=== PATIENT | female | born 1960 | race Caucasian/White ===

== ENCOUNTER 2020-05-02 05:14 | Inpatient (IN) | payer OTHER, MEDICAID ==
[~2020-05-02] VITALS: Ht 152.4 cm; Wt 89.4 kg
[~2020-05-02 05:14] MED LIST: HYDR2TAB58; METH-562; [UNRECOGNIZED DRUG - CODE]; [UNRECOGNIZED DRUG - OTHER]
[2020-05-02] MEDS: BUDESONIDE (INHALATION) 180 MCG IH IN SCH ×2 (06:35→19:14)
[2020-05-02 06:54] LABS: Basophils # (auto) 0 10 ^3/uL (0-0.2); Basophils % (auto) 0.4 % (0.0-2.0); Eosinophils # (auto) 0 10 ^3/uL (0-0.8); Hematocrit 39.5 % (36.0-46.0); Hemoglobin 13.3 g/dL (12.2-16.2); Lymphocytes # (auto) 0.6 10 ^3/uL (0.4-5.4); Lymphocytes % (auto) 13.5 % (10.0-50.0); Mean Corpuscular Hemoglobin 29.8 pg (28.0-32.0); Mean Corpuscular Hgb Conc. 33.8 g/dL (32.0-36.0); Mean Corpuscular Volume 88.3 fL (80.0-100.0); Monocytes # (auto) 0.5 10 ^3/uL (0-1.3); Monocytes % (auto) 11.7 % (0.0-12.0); Neutrophils # (auto) 3.3 10 ^3/uL (1.6-8.6); Neutrophils % (auto) 74.4 % (37.0-80.0); Nucleated Red Blood Cells % 0.2 %; Platelet Count (auto) 230 10^3/uL (140-450); Red Blood Cells 4.47 10^6/uL (4.0-5.20); Red Cell Distribution Width 13.8 % (11.8-14.3); White Blood Cell 4.4 10^3/uL (4.4-10.8)
[2020-05-02] MEDS ORDERED: ACETAMINOPHEN 500 MG TAB PO ONE (07:00)
[2020-05-02 07:01] LABS: INR 1.06 (0.9-1.15); Partial Thromboplastin Time 25.6 sec (23.0-31.2)
[2020-05-02 07:07] LABS: Calcium 7.9 mg/dL (8.5-10.1); Potassium 3.6 mmol/L (3.5-5.1)
[2020-05-02] MEDS ORDERED: HYDROcodone-ACET 5/325MG TAB PO ONE (07:15)
[2020-05-02] MEDS ORDERED: cefTRIAXone 1GM/50ML D5W 50 ML IV ONE (07:15)
[2020-05-02] MEDS ORDERED: DexAMETHasone SOD PHOS 10MG/1ML VIAL INJ IV ONE (07:15)
[2020-05-02] MEDS ORDERED: AZITHROMYCIN 500MG/ 250ML 250 ML IV ONE (07:15)
[2020-05-02 07:16] LABS: Albumin 3.3 g/dL (3.4-5.0); BUN/Creatinine Ratio 19.9; Bilirubin, Total 0.5 mg/dL (0.2-1.0); Total Protein 7.7 g/dL (6.4-8.2)
[2020-05-02 08:23] LABS: CRP High Sensitivity 4.59 mg/dL (< 0.3)
[2020-05-02] MEDS ORDERED: ACETAMINOPHEN 500 MG TAB PO PRN (09:15)
[2020-05-02] MEDS ORDERED: MORPHINE SULF INJ 2 MG/ML SYRINGE 1ML IV PRN ×2 (09:15)
[2020-05-02] MEDS ORDERED: NITROGLYCERIN 0.4 MG SL TAB SL PRN (09:15)
[2020-05-02] MEDS ORDERED: REMDESIVIR PER PHARMACY 0 ML IV SCH (09:15)
[2020-05-02] MEDS: ZINC SULFATE 220mg CAP or TAB PO SCH (09:54)
[2020-05-02] MEDS: VENLAFAXINE HCL 37.5MG TABLET PO SCH ×2 (09:54→21:56)
[2020-05-02] MEDS: ASCORBIC ACID 1,000 MG TAB PO SCH (09:54)
[2020-05-02] MEDS: FAMOTIDINE 20 MG TAB PO SCH (09:54)
[2020-05-02] MEDS: MORPHINE SULF 15mg ER tab PO SCH ×2 (09:54→22:04)
[2020-05-02] MEDS: ENOXAPARIN SOD 40 MG/0.4 ML SYRINGE SC SCH ×2 (09:55→21:57)
[2020-05-02] MEDS: CHOLECALCIFEROL (VITD3) 2,000 UNIT CAP PO SCH (09:55)
[2020-05-02] MEDS ORDERED: AZITHROMYCIN 500MG/ 250ML 250 ML IV SCH (10:00)
[2020-05-02] MEDS ORDERED: IVERMECTIN 3 MG TAB PO ONE (10:00)
[2020-05-02] MEDS ORDERED: METOPROLOL TARTRATE 25 MG TAB PO SCH (10:00)
[2020-05-02] MEDS ORDERED: REMDESIVIR 200 MG in NS 210ml LOADING DOSE ADULT IV ONE (15:00)
[2020-05-02 16:54] VITALS: BP 97/58
[2020-05-02] MEDS: ALBUTEROL SULF HFA 90MCG INH 200DOSE IN PRN (19:15)
[2020-05-02] MEDS: ATORVASTATIN 20 MG TAB PO SCH (21:56)
[2020-05-03] VITALS: BP 118/73
[2020-05-03 02:01] LABS: Urine Amorphous Crystal MOD /hpf (None Seen); Urine Bacteria MOD /hpf (None Seen); Urine Blood TRACE /uL (Negative); Urine Hyaline Cast FEW /lpf (0 - 2); Urine Mucus FEW (None Seen); Urine Specific Gravity 1.028 (1.001-1.035); Urine WBC 7 /hpf (0 - 5)
[2020-05-03] MEDS: BUDESONIDE (INHALATION) 180 MCG IH IN SCH ×2 (06:03→18:55)
[2020-05-03] MEDS: ALBUTEROL SULF HFA 90MCG INH 200DOSE IN PRN ×2 (06:04→18:55)
[2020-05-03 06:29] LABS: Basophils # (auto) 0 10 ^3/uL (0-0.2); Basophils % (auto) 0.2 % (0.0-2.0); Eosinophils # (auto) 0 10 ^3/uL (0-0.8); Hematocrit 40.4 % (36.0-46.0); Hemoglobin 13.6 g/dL (12.2-16.2); Lymphocytes # (auto) 0.8 10 ^3/uL (0.4-5.4); Lymphocytes % (auto) 15.6 % (10.0-50.0); Mean Corpuscular Hemoglobin 29.8 pg (28.0-32.0); Mean Corpuscular Hgb Conc. 33.5 g/dL (32.0-36.0); Monocytes # (auto) 0.5 10 ^3/uL (0-1.3); Monocytes % (auto) 10.8 % (0.0-12.0); Neutrophils # (auto) 3.7 10 ^3/uL (1.6-8.6); Neutrophils % (auto) 73.4 % (37.0-80.0); Nucleated Red Blood Cells % 0.2 %; Platelet Count (auto) 256 10^3/uL (140-450); Red Blood Cells 4.54 10^6/uL (4.0-5.20); Red Cell Distribution Width 14.1 % (11.8-14.3)
[2020-05-03 06:49] LABS: Albumin 2.8 g/dL (3.4-5.0); Calcium 8.4 mg/dL (8.5-10.1)
[2020-05-03 06:54] LABS: BUN/Creatinine Ratio 33.7; Bilirubin, Total 0.4 mg/dL (0.2-1.0); Total Protein 7.3 g/dL (6.4-8.2)
[2020-05-03 08:00] VITALS: BP 97/58
[2020-05-03] MEDS: cefTRIAXone 1GM/50ML D5W 50 ML IV SCH (08:38)
[2020-05-03] MEDS: AZITHROMYCIN 250 MG TAB PO SCH (09:52)
[2020-05-03] MEDS: CHOLECALCIFEROL (VITD3) 2,000 UNIT CAP PO SCH (09:52)
[2020-05-03] MEDS: MORPHINE SULF 15mg ER tab PO SCH ×2 (09:53→22:00)
[2020-05-03] MEDS: ZINC SULFATE 220mg CAP or TAB PO SCH (09:53)
[2020-05-03] MEDS: ASCORBIC ACID 1,000 MG TAB PO SCH (09:53)
[2020-05-03] MEDS: FAMOTIDINE 20 MG TAB PO SCH (09:53)
[2020-05-03] MEDS: VENLAFAXINE HCL 37.5MG TABLET PO SCH ×2 (09:53→22:00)
[2020-05-03] MEDS: ENOXAPARIN SOD 40 MG/0.4 ML SYRINGE SC SCH ×2 (09:54→22:00)
[2020-05-03 11:59] VITALS: BP 107/60
[2020-05-03 12:20] VITALS: BP 99/68
[2020-05-03] MEDS ORDERED: ALBUAER3 IN (13:47)
[2020-05-03] MEDS ORDERED: NORT10CA PO (13:47)
[2020-05-03] MEDS ORDERED: TIZA2CAP7 PO (13:47)
[2020-05-03] MEDS ORDERED: AZIT250T9 PO (13:47)
[2020-05-03] MEDS ORDERED: VENL150T26 PO (13:47)
[2020-05-03] MEDS ORDERED: METO25TA5 PO (13:47)
[2020-05-03] MEDS ORDERED: TRAZ50TA2 PO (13:47)
[2020-05-03] MEDS ORDERED: CICL80AE2 IN (13:47)
[2020-05-03] MEDS ORDERED: ATOR10TA52 PO (13:47)
[2020-05-03] MEDS ORDERED: VENL150C58 PO (13:49)
[2020-05-03 14:50] VITALS: BP 95/54
[2020-05-03] MEDS ORDERED: FUROSEMIDE 20 MG TAB PO ONE (15:30)
[2020-05-03 16:00] VITALS: BP 112/65
[2020-05-03] MEDS: REMDESIVIR 100mg 100 MG in SODIUM CHL 0.9% 230 ML IV SCH (16:01)
[2020-05-03] MEDS: ATORVASTATIN 20 MG TAB PO SCH (22:00)
[2020-05-04] VITALS: BP 100/61
[2020-05-04 06:25] LABS: Albumin 2.8 g/dL (3.4-5.0); Calcium 8.2 mg/dL (8.5-10.1); Potassium 3.6 mmol/L (3.5-5.1)
[2020-05-04 06:28] LABS: Bilirubin, Total 0.4 mg/dL (0.2-1.0); Total Protein 6.8 g/dL (6.4-8.2)
[2020-05-04] MEDS: ALBUTEROL SULF HFA 90MCG INH 200DOSE IN PRN ×2 (06:35→18:52)
[2020-05-04] MEDS: BUDESONIDE (INHALATION) 180 MCG IH IN SCH ×2 (06:35→18:52)
[2020-05-04 08:00] VITALS: BP 110/65
[2020-05-04] MEDS: MORPHINE SULF 15mg ER tab PO SCH ×2 (09:02→22:19)
[2020-05-04] MEDS: cefTRIAXone 1GM/50ML D5W 50 ML IV SCH (09:02)
[2020-05-04] MEDS: ZINC SULFATE 220mg CAP or TAB PO SCH (09:02)
[2020-05-04] MEDS: VENLAFAXINE HCL 37.5MG TABLET PO SCH (09:02)
[2020-05-04] MEDS: FAMOTIDINE 20 MG TAB PO SCH (09:02)
[2020-05-04] MEDS: ASCORBIC ACID 1,000 MG TAB PO SCH (09:03)
[2020-05-04] MEDS: CHOLECALCIFEROL (VITD3) 2,000 UNIT CAP PO SCH (09:03)
[2020-05-04] MEDS: ENOXAPARIN SOD 40 MG/0.4 ML SYRINGE SC SCH ×2 (09:03→22:19)
[2020-05-04] MEDS: AZITHROMYCIN 250 MG TAB PO SCH (09:03)
[2020-05-04] MEDS: POTASSIUM CHL 10 Meq TABLET PO SCH (09:38)
[2020-05-04] MEDS: LORazepam 0.5 MG TAB PO PRN ×2 (09:39→20:10)
[2020-05-04] MEDS ORDERED: FUROSEMIDE 20 MG TAB PO SCH (10:00)
[2020-05-04 16:00] VITALS: BP 116/63
[2020-05-04] MEDS: REMDESIVIR 100mg 100 MG in SODIUM CHL 0.9% 230 ML IV SCH (16:08)
[2020-05-04] MEDS: VENLAFAXINE HCL 37.5mg XR cap PO SCH (22:18)
[2020-05-04] MEDS: ATORVASTATIN 20 MG TAB PO SCH (22:19)
[2020-05-04] MEDS: METOPROLOL TARTRATE 25 MG TAB PO SCH (22:20)
[2020-05-05] VITALS: BP 107/63
[2020-05-05 06:07] LABS: Potassium 3.5 mmol/L (3.5-5.1)
[2020-05-05 06:21] LABS: Albumin 2.8 g/dL (3.4-5.0); BUN/Creatinine Ratio 27.4; Bilirubin, Total 0.5 mg/dL (0.2-1.0); Total Protein 6.7 g/dL (6.4-8.2)
[2020-05-05] MEDS: ALBUTEROL SULF HFA 90MCG INH 200DOSE IN PRN ×2 (07:00→18:54)
[2020-05-05] MEDS: BUDESONIDE (INHALATION) 180 MCG IH IN SCH ×2 (07:00→18:54)
[2020-05-05 08:00] VITALS: BP 117/82
[2020-05-05] MEDS: MORPHINE SULF 15mg ER tab PO SCH ×2 (10:31→22:17)
[2020-05-05] MEDS: POTASSIUM CHL 10 Meq TABLET PO SCH (10:31)
[2020-05-05] MEDS: VENLAFAXINE HCL 37.5mg XR cap PO SCH ×2 (10:31→22:16)
[2020-05-05] MEDS: ASCORBIC ACID 1,000 MG TAB PO SCH (10:31)
[2020-05-05] MEDS: FAMOTIDINE 20 MG TAB PO SCH (10:31)
[2020-05-05] MEDS: CHOLECALCIFEROL (VITD3) 2,000 UNIT CAP PO SCH (10:32)
[2020-05-05] MEDS: ENOXAPARIN SOD 40 MG/0.4 ML SYRINGE SC SCH ×2 (10:32→22:17)
[2020-05-05] MEDS: AZITHROMYCIN 250 MG TAB PO SCH (10:32)
[2020-05-05] MEDS: FUROSEMIDE 40 MG/4 ML VIAL IV SCH (10:33)
[2020-05-05] MEDS: ZINC SULFATE 220mg CAP or TAB PO SCH (10:33)
[2020-05-05] MEDS: METOPROLOL TARTRATE 25 MG TAB PO SCH ×2 (10:33→22:00)
[2020-05-05] MEDS: cefTRIAXone 1GM/50ML D5W 50 ML IV SCH (10:33)
[2020-05-05] MEDS: LORazepam 0.5 MG TAB PO PRN ×2 (10:34→20:09)
[2020-05-05 16:00] VITALS: BP 107/68
[2020-05-05] MEDS: REMDESIVIR 100mg 100 MG in SODIUM CHL 0.9% 230 ML IV SCH (16:21)
[2020-05-05] MEDS: ATORVASTATIN 20 MG TAB PO SCH (22:17)
[2020-05-06] VITALS: BP 129/68
[2020-05-06 06:07] LABS: Basophils # (auto) 0 10 ^3/uL (0-0.2); Basophils % (auto) 0.6 % (0.0-2.0); Eosinophils # (auto) 0.1 10 ^3/uL (0-0.8); Eosinophils % (auto) 2.1 % (0.0-7.0); Hematocrit 39.1 % (36.0-46.0); Hemoglobin 13.2 g/dL (12.2-16.2); Lymphocytes # (auto) 0.9 10 ^3/uL (0.4-5.4); Lymphocytes % (auto) 16.9 % (10.0-50.0); Mean Corpuscular Hemoglobin 29.7 pg (28.0-32.0); Mean Corpuscular Hgb Conc. 33.6 g/dL (32.0-36.0); Mean Corpuscular Volume 88.1 fL (80.0-100.0); Monocytes # (auto) 0.4 10 ^3/uL (0-1.3); Monocytes % (auto) 7.1 % (0.0-12.0); Neutrophils % (auto) 73.3 % (37.0-80.0); Nucleated Red Blood Cells % 0.1 %; Platelet Count (auto) 411 10^3/uL (140-450); Red Blood Cells 4.44 10^6/uL (4.0-5.20); Red Cell Distribution Width 14.3 % (11.8-14.3); White Blood Cell 5.4 10^3/uL (4.4-10.8)
[2020-05-06 06:25] LABS: Potassium 3.1 mmol/L (3.5-5.1)
[2020-05-06 06:33] LABS: Albumin 2.7 g/dL (3.4-5.0); BUN/Creatinine Ratio 32.4; Bilirubin, Total 0.5 mg/dL (0.2-1.0); Calcium 8.3 mg/dL (8.5-10.1)
[2020-05-06] MEDS: ALBUTEROL SULF HFA 90MCG INH 200DOSE IN PRN (07:28)
[2020-05-06] MEDS: BUDESONIDE (INHALATION) 180 MCG IH IN SCH ×2 (07:28→22:00)
[2020-05-06 08:00] VITALS: BP 123/75
[2020-05-06] MEDS: cefTRIAXone 1GM/50ML D5W 50 ML IV SCH (10:01)
[2020-05-06] MEDS: FUROSEMIDE 40 MG/4 ML VIAL IV SCH (10:01)
[2020-05-06] MEDS: ZINC SULFATE 220mg CAP or TAB PO SCH (10:02)
[2020-05-06] MEDS: VENLAFAXINE HCL 37.5mg XR cap PO SCH ×2 (10:02→21:24)
[2020-05-06] MEDS: METOPROLOL TARTRATE 25 MG TAB PO SCH ×3 (10:03→22:30)
[2020-05-06] MEDS: MORPHINE SULF 15mg ER tab PO SCH ×3 (10:03→22:50)
[2020-05-06] MEDS: POTASSIUM CHL 10 Meq TABLET PO SCH (10:03)
[2020-05-06] MEDS: FAMOTIDINE 20 MG TAB PO SCH (10:03)
[2020-05-06] MEDS: CHOLECALCIFEROL (VITD3) 2,000 UNIT CAP PO SCH (10:04)
[2020-05-06] MEDS: AZITHROMYCIN 250 MG TAB PO SCH (10:04)
[2020-05-06] MEDS: ASCORBIC ACID 1,000 MG TAB PO SCH (10:04)
[2020-05-06] MEDS: ENOXAPARIN SOD 40 MG/0.4 ML SYRINGE SC SCH ×2 (10:05→21:25)
[2020-05-06] MEDS ORDERED: POTASSIUM EFFERVESENT TAB 25 MEQ PO ONE (12:00)
[2020-05-06] MEDS: LORazepam 0.5 MG TAB PO PRN ×2 (12:00→21:24)
[2020-05-06] MEDS: REMDESIVIR 100mg 100 MG in SODIUM CHL 0.9% 230 ML IV SCH (15:00)
[2020-05-06 16:00] VITALS: BP 124/82
[2020-05-06] MEDS: ONDANSETRON HCL 4 MG/2 ML VIAL IV PRN (20:49)
[2020-05-06] MEDS: ATORVASTATIN 20 MG TAB PO SCH (21:25)
[2020-05-07 00:20] VITALS: BP 152/98
[2020-05-07] MEDS: HYDROcodone-ACET 5/325MG TAB PO PRN (01:01)
[2020-05-07] MEDS: ONDANSETRON HCL 4 MG/2 ML VIAL IV PRN ×2 (02:39→09:26)
[2020-05-07] MEDS: BUDESONIDE (INHALATION) 180 MCG IH IN SCH ×2 (06:33→21:21)
[2020-05-07 08:00] VITALS: BP 107/70
[2020-05-07] MEDS: ALBUTEROL SULF HFA 90MCG INH 200DOSE IN PRN ×2 (09:05→21:21)
[2020-05-07] MEDS: ZINC SULFATE 220mg CAP or TAB PO SCH (09:22)
[2020-05-07] MEDS: FUROSEMIDE 40 MG/4 ML VIAL IV SCH (09:22)
[2020-05-07] MEDS: cefTRIAXone 1GM/50ML D5W 50 ML IV SCH (09:22)
[2020-05-07] MEDS: POTASSIUM CHL 10 Meq TABLET PO SCH (09:23)
[2020-05-07] MEDS: VENLAFAXINE HCL 37.5mg XR cap PO SCH ×2 (09:23→22:15)
[2020-05-07] MEDS: AZITHROMYCIN 250 MG TAB PO SCH (09:23)
[2020-05-07] MEDS: CHOLECALCIFEROL (VITD3) 2,000 UNIT CAP PO SCH (09:24)
[2020-05-07] MEDS: ASCORBIC ACID 1,000 MG TAB PO SCH (09:24)
[2020-05-07] MEDS: MORPHINE SULF 15mg ER tab PO SCH ×2 (09:25→22:16)
[2020-05-07] MEDS: FAMOTIDINE 20 MG TAB PO SCH (09:25)
[2020-05-07] MEDS: METOPROLOL TARTRATE 25 MG TAB PO SCH ×2 (09:25→22:16)
[2020-05-07] MEDS: ENOXAPARIN SOD 40 MG/0.4 ML SYRINGE SC SCH ×2 (09:26→22:16)
[2020-05-07] MEDS: LORazepam 0.5 MG TAB PO PRN (15:20)
[2020-05-07 16:00] VITALS: BP 113/67
[2020-05-07] MEDS: ATORVASTATIN 20 MG TAB PO SCH (22:15)
[2020-05-08] VITALS: BP 110/70
[2020-05-08 05:56] LABS: Potassium 3.3 mmol/L (3.5-5.1)
[2020-05-08 06:12] LABS: Albumin 2.6 g/dL (3.4-5.0); BUN/Creatinine Ratio 29.7; Bilirubin, Total 0.6 mg/dL (0.2-1.0); Calcium 8.3 mg/dL (8.5-10.1)
[2020-05-08] MEDS: BUDESONIDE (INHALATION) 180 MCG IH IN SCH ×2 (06:18→18:53)
[2020-05-08] MEDS: ALBUTEROL SULF HFA 90MCG INH 200DOSE IN PRN ×2 (06:19→18:53)
[2020-05-08 08:00] VITALS: BP 105/68
[2020-05-08] MEDS: cefTRIAXone 1GM/50ML D5W 50 ML IV SCH (08:56)
[2020-05-08] MEDS: FUROSEMIDE 40 MG/4 ML VIAL IV SCH (08:57)
[2020-05-08] MEDS: VENLAFAXINE HCL 37.5mg XR cap PO SCH ×2 (08:58→21:58)
[2020-05-08] MEDS: AZITHROMYCIN 250 MG TAB PO SCH (08:58)
[2020-05-08] MEDS: FAMOTIDINE 20 MG TAB PO SCH (08:59)
[2020-05-08] MEDS: MORPHINE SULF 15mg ER tab PO SCH ×2 (09:00→21:57)
[2020-05-08] MEDS: POTASSIUM CHL 10 Meq TABLET PO SCH (09:01)
[2020-05-08] MEDS: METOPROLOL TARTRATE 25 MG TAB PO SCH ×2 (09:02→21:57)
[2020-05-08] MEDS: ASCORBIC ACID 1,000 MG TAB PO SCH (09:03)
[2020-05-08] MEDS: ZINC SULFATE 220mg CAP or TAB PO SCH (09:03)
[2020-05-08] MEDS: CHOLECALCIFEROL (VITD3) 2,000 UNIT CAP PO SCH (09:03)
[2020-05-08] MEDS: ENOXAPARIN SOD 40 MG/0.4 ML SYRINGE SC SCH ×2 (09:04→21:58)
[2020-05-08] MEDS: HYDROcodone-ACET 5/325MG TAB PO PRN ×2 (09:25→15:48)
[2020-05-08] MEDS ORDERED: DexAMETHasone SOD PHOS 10MG/1ML VIAL INJ IV ONE (14:15)
[2020-05-08] MEDS ORDERED: MORPHINE SULF INJ 2 MG/ML SYRINGE 1ML IV PRN (14:15)
[2020-05-08] MEDS ORDERED: POTASSIUM CHL 10 Meq TABLET PO ONE (14:30)
[2020-05-08 15:39] VITALS: BP 112/71
[2020-05-08] MEDS: ATORVASTATIN 20 MG TAB PO SCH (21:58)
[2020-05-09] VITALS: BP 97/56
[2020-05-09 08:00] VITALS: BP 93/48
[2020-05-09] MEDS: HYDROcodone-ACET 5/325MG TAB PO PRN ×2 (08:19→15:25)
[2020-05-09] MEDS: BUDESONIDE (INHALATION) 180 MCG IH IN SCH ×2 (08:40→19:28)
[2020-05-09] MEDS: ZINC SULFATE 220mg CAP or TAB PO SCH (09:39)
[2020-05-09] MEDS: cefTRIAXone 1GM/50ML D5W 50 ML IV SCH (09:41)
[2020-05-09] MEDS: CHOLECALCIFEROL (VITD3) 2,000 UNIT CAP PO SCH (09:42)
[2020-05-09] MEDS: VENLAFAXINE HCL 37.5mg XR cap PO SCH ×2 (09:42→21:18)
[2020-05-09] MEDS: ASCORBIC ACID 1,000 MG TAB PO SCH (09:43)
[2020-05-09] MEDS: FAMOTIDINE 20 MG TAB PO SCH (09:43)
[2020-05-09] MEDS: AZITHROMYCIN 250 MG TAB PO SCH (09:44)
[2020-05-09] MEDS: POTASSIUM CHL 10 Meq TABLET PO SCH (09:45)
[2020-05-09] MEDS: DexAMETHasone SOD PHOS 10MG/1ML VIAL INJ IV SCH (09:47)
[2020-05-09] MEDS: FUROSEMIDE 40 MG/4 ML VIAL IV SCH (09:53)
[2020-05-09] MEDS: MORPHINE SULF 15mg ER tab PO SCH ×3 (09:54→22:26)
[2020-05-09] MEDS: ALBUTEROL SULF HFA 90MCG INH 200DOSE IN PRN ×2 (10:50→19:28)
[2020-05-09] MEDS: ENOXAPARIN SOD 40 MG/0.4 ML SYRINGE SC SCH ×2 (11:49→21:27)
[2020-05-09 16:00] VITALS: BP_SYST 44; BP_SYST 91; BP_DIAS 44
[2020-05-09] MEDS: ATORVASTATIN 20 MG TAB PO SCH (21:23)
[2020-05-09 23:49] VITALS: BP 111/62
[2020-05-10 06:12] LABS: Potassium 4.6 mmol/L (3.5-5.1)
[2020-05-10 06:17] LABS: BUN/Creatinine Ratio 30.2; Calcium 8.8 mg/dL (8.5-10.1)
[2020-05-10] MEDS: BUDESONIDE (INHALATION) 180 MCG IH IN SCH ×2 (06:54→19:46)
[2020-05-10 08:00] VITALS: BP 108/68
[2020-05-10] MEDS: VENLAFAXINE HCL 37.5mg XR cap PO SCH ×2 (09:04→21:16)
[2020-05-10] MEDS: ZINC SULFATE 220mg CAP or TAB PO SCH (09:04)
[2020-05-10] MEDS: CHOLECALCIFEROL (VITD3) 2,000 UNIT CAP PO SCH (09:04)
[2020-05-10] MEDS: AZITHROMYCIN 250 MG TAB PO SCH (09:04)
[2020-05-10] MEDS: ASCORBIC ACID 1,000 MG TAB PO SCH (09:05)
[2020-05-10] MEDS: FAMOTIDINE 20 MG TAB PO SCH (09:05)
[2020-05-10] MEDS: ENOXAPARIN SOD 40 MG/0.4 ML SYRINGE SC SCH ×2 (09:05→21:17)
[2020-05-10] MEDS: DexAMETHasone SOD PHOS 10MG/1ML VIAL INJ IV SCH (09:07)
[2020-05-10] MEDS: cefTRIAXone 1GM/50ML D5W 50 ML IV SCH (09:07)
[2020-05-10] MEDS: POTASSIUM CHL 10 Meq TABLET PO SCH (09:07)
[2020-05-10] MEDS: FUROSEMIDE 40 MG/4 ML VIAL IV SCH (09:07)
[2020-05-10] MEDS ORDERED: MORPHINE SULF 15mg ER tab PO ONE (09:30)
[2020-05-10] MEDS ORDERED: FUROSEMIDE 20 MG/2 ML VIAL IV SCH (10:00)
[2020-05-10] MEDS ORDERED: SALINE 0.65 % NASAL SPRAY 45ML BOTTLE EACHNOSTRI ONE (10:00)
[2020-05-10] MEDS: SALINE 0.65 % NASAL SPRAY 45ML BOTTLE EACHNOSTRI SCH ×3 (12:00→21:18)
[2020-05-10] MEDS ORDERED: ASPI-231 PO (12:25)
[2020-05-10] MEDS ORDERED: POTA-167 PO (12:25)
[2020-05-10] MEDS ORDERED: FURO20TA3 PO (12:25)
[2020-05-10] MEDS ORDERED: ASCO500T11 PO (12:25)
[2020-05-10] MEDS ORDERED: CHOL20007 PO (12:25)
[2020-05-10] MEDS ORDERED: ZINC220T6 PO (12:25)
[2020-05-10] MEDS: HYDROcodone-ACET 5/325MG TAB PO PRN (14:29)
[2020-05-10] MEDS ORDERED: DEX4T PO (15:34)
[2020-05-10] MEDS ORDERED: FAMO-12 PO (15:34)
[2020-05-10 16:00] VITALS: BP 100/68
[2020-05-10] MEDS: ALBUTEROL SULF HFA 90MCG INH 200DOSE IN PRN (19:46)
[2020-05-10] MEDS: MORPHINE SULF 15mg ER tab PO SCH (21:17)
[2020-05-10] MEDS: ATORVASTATIN 20 MG TAB PO SCH (21:17)
[2020-05-10 22:00] VITALS: BP 120/77
== END 2020-05-10 22:40 | disposition home or self-care (01) | DRG 871 ==
LOC: EDBD 05:14 → ER 05:14 → TELE 05:15 → TELE-EAST 15:30
PROVIDERS: ADMIT Nurse Practitioner Acute Care; ATTEND Internal Medicine
PROC: XW033E5 Introduction of Remdesivir Anti-infective into Peripheral Vein, Percutaneous Approach, New Technology Group 5 (ICD-10-PCS; 2020-05-02)
PROC: XW13325 Transfusion of Convalescent Plasma (Nonautologous) into Peripheral Vein, Percutaneous Approach, New Technology Group 5 (ICD-10-PCS; principal; 2020-05-03)
DX: A41.89 Other specified sepsis (principal); U07.1 COVID-19; J12.82 Pneumonia due to coronavirus disease 2019; J96.01 Acute respiratory failure with hypoxia; N17.0 Acute kidney failure with tubular necrosis; E87.1 Hypo-osmolality and hyponatremia; E44.1 Mild protein-calorie malnutrition; J44.0 Chronic obstructive pulmonary disease with (acute) lower respiratory infection; F32.9 Major depressive disorder, single episode, unspecified; F41.9 Anxiety disorder, unspecified; G89.29 Other chronic pain; D89.839 Cytokine release syndrome, grade unspecified; E66.9 Obesity, unspecified; E78.5 Hyperlipidemia, unspecified; F17.210 Nicotine dependence, cigarettes, uncomplicated; I12.9 Hypertensive chronic kidney disease with stage 1 through stage 4 chronic kidney disease, or unspecified chronic kidney disease; Z79.891 Long term (current) use of opiate analgesic; Z86.73 Personal history of transient ischemic attack (TIA), and cerebral infarction without residual deficits; Z90.710 Acquired absence of both cervix and uterus; M54.5 Low back pain; Z79.899 Other long term (current) drug therapy; Z68.38 Body mass index [BMI] 38.0-38.9, adult; Z88.8 Allergy status to other drugs, medicaments and biological substances; N18.31 Chronic kidney disease, stage 3a
CPT/HCPCS: 36415; 36600; 71045; 80048; 80053; 81001; 82306; 82728; 82805; 83605; 83615; 83735; 83880; 84443; 84484; 85025; 85379; 85610; 85730; 86141; 86850; 86900; 86901; 87040; 87426; 87804; 93005; 93970; 94640; 96365; 96367; 96368; 96375; 99291; G0378; J0696; J1100; J2405